=== PATIENT | female | born 1960 | race Caucasian/White ===

== ENCOUNTER 2020-12-23 20:15 | Emergency (ER) | payer OTHER ==
[~2020-12-23 20:15] MED LIST: ASPIRIN CHEWABL81 MG PO; ATORVASTATIN CA20 MG PO; LEVOTHYROXINE50 MCG PO; LOPRESSOR50 MG PO; NORCO 10-325 T1 EACH PO; OMEPRAZOLE20 MG PO; PLAVIX 75 MG TA75 MG PO; PROTONIX 40 MG40 M1 PO; SEROQUEL200 MG PO; TRAMADOL HCL50 MG PO; VALIUM5 MG PO
[2020-12-23 20:39] LABS: HEMOGLOBIN 15.3 gm/dl (12.3-15.3); RED BLOOD COUNT 4.54 M/UL (4.00-5.10); WHITE BLOOD COUNT 9.4 K/UL (4.5-11.0)
[2020-12-23 21:09] LABS: BUN/CREATININE RATIO 20 (0-10)
== END 2020-12-23 22:17 | disposition left against medical advice (07) ==
LOC: ER1 20:15
PROVIDERS: Emergency Medicine
DX: R07.9 Chest pain, unspecified (principal); I25.10 Atherosclerotic heart disease of native coronary artery without angina pectoris; I10 Essential (primary) hypertension; J44.9 Chronic obstructive pulmonary disease, unspecified
CPT/HCPCS: 71045; 80053; 82550; 82553; 83735; 83874; 83880; 84100; 84484; 85025; 85610; 85730; 93005; 99285; J2270; J2405